=== PATIENT | male | born 1960 | race Caucasian/White ===

== ENCOUNTER → 2020-11-12 | Day surgery (SDC) | payer OTHER ==
[~2020-11-12] VITALS: Ht 185.4 cm; Wt 113.4 kg
[~2020-11-12] MED LIST: ACETAMINOPHEN325 MG PO; AMARYL2 MG PO; COZAAR50 MG PO; FEOSOL325 MG PO; LAXATIVE OF CHOICE PO; METFORMIN HCL500 MG PO; METROGEL 0.75%45 GM TOP; NORVASC10 MG PO; PERCOCET 5/3251 TAB PO; PRILOSEC20 MG PO; VIBRAMYCIN100 MG PO; VOLTAREN **OUT50 MG PO; [UNRECOGNIZED DRUG - OTHER] PO
== END | disposition home or self-care (01) ==
LOC: FAS 09:24
DX: Z12.11 Encounter for screening for malignant neoplasm of colon (principal); J30.9 Allergic rhinitis, unspecified; I10 Essential (primary) hypertension; E11.9 Type 2 diabetes mellitus without complications; R74.01 Elevation of levels of liver transaminase levels; E78.5 Hyperlipidemia, unspecified; E55.9 Vitamin D deficiency, unspecified; K64.8 Other hemorrhoids; M19.90 Unspecified osteoarthritis, unspecified site; G47.30 Sleep apnea, unspecified; Z88.0 Allergy status to penicillin; Z96.652 Presence of left artificial knee joint
CPT/HCPCS: J2250; J2704; J7120